=== PATIENT | female | born 1985 | race Two or more races ===

== ENCOUNTER 2023-09-23 11:15 | Emergency (ER) | payer BC, SELFPAY ==
[2023-09-23 11:18] VITALS: BP 140/96
[2023-09-23 11:30] VITALS: BMI 38.4
[2023-09-23 11:41] VITALS: BP 135/80
[2023-09-23 11:53] LABS: % Basophils 0.4 % (0-2); % Eosinophils 0.1 % (0-6); % Immature Granulocytes 0.4 % (0-0.5); % Lymphocytes 14.2 % (20.5-51.1); % Monocytes 4.5 % (1.7-9.3); % Neutrophils 80.4 % (42.2-75.2); Absolute Lymphocytes 1.3 10^3/uL (1.2-3.4); Absolute Monocytes 0.4 10^3/uL (0.1-0.6); Absolute Neutrophils 7.5 10^3/uL (1.4-6.5); Hematocrit 33.9 % (37.0-47.0); Hemoglobin 11.1 g/dL (12.0-16.0); Mean Corp Hgb Conc. 32.7 g/dL (33.0-37.0); Mean Corpuscular Hgb 24.1 pg (27.0-31.0); Mean Corpuscular Volume 73.7 fL (81.0-99.0); Mean Platelet Volume 9.5 fL (7.4-10.4); Nucleated Red Blood Cells % 0 %; Platelet Count 340 10^3/uL (130-400); Red Cell Dist. Width 14.3 % (11.5-14.5); White Blood Cell Count 9.3 10^3/uL (4.8-10.8)
[2023-09-23 12:00] VITALS: BP 132/84
[2023-09-23 12:16] LABS: ALT (SGPT) 14 U/L (0-35); AST (SGOT) 20 U/L (14-36); Albumin 4.4 g/dl (3.5-5.0); Alkaline Phosphatase 53 U/L (38-126); Blood Urea Nitrogen 12 mg/dl (7-17); Calcium 9.3 mg/dl (8.4-10.2); Carbon Dioxide 22 mmol/L (22-30); Chloride 107 mmol/L (98-107); Estimated Creatinine Clearance > 125 ml/min; Glucose 122 mg/dl (70-99); Potassium 4.2 mmol/L (3.5-5.1); Sodium 139 mmol/L (135-145); Total Bilirubin 0.4 mg/dl (0.2-1.3); Total Protein 7.8 g/dl (6.3-8.2); eGFR > 60.00
[2023-09-23] MEDS: NSS 1000 IV (13:19)
[2023-09-23] MEDS: ZOFRAN 4 MG IV (13:19)
--- NOTE | 2023-09-23 13:19 | ED.GENMED ---
History of Present Illness
General
Chief Complaint: Dizziness
Source: patient
Exam Limitations: none
Time Seen by Provider: 09/23/23 12:55
Travel History
Have you had any contact with someone who has COVID-19?: No
Do you have any symptoms of coronavirus? Fever > 100 degrees, chills, cough, shortness of breath, sore throat, loss of taste or smell, muscle aches, or headache?: No
History of Present Illness
History of Present Illness:
38-year-old female presents with the onset of dizziness nausea and vomiting starting last evening getting worse this morning. She states the dizziness was made worse with change in position. She denies headache double vision blurry vision or loss
of vision. She denies chest pain or shortness of breath. She is currently having her menstrual cycle which tends to be getting heavier with each cycle. No known sick contacts. No fever. No new neck pain. No other complaints
Phy Exam
Physical Exam
Physical Exam:
General: Uncomfortable appearing female no acute distress
HEENT normocephalic TMs normal pupils equal round reactive to light subtle horizontal nystagmus on extraocular motion testing
Heart: Regular rate and rhythm
Lungs: Clear no wheeze or rales
Neurologic: Alert and oriented no drift on exam finger-nose [id number] intact. [place] to the right reproduces nausea more so to the right than the left. No obvious nystagmus noted during this test. Alert and oriented x 3 no facial
asymmetry or slurred speech extremities: No cyanosis or edema
Course
Orders/Labs/Results
Orders:
Orders
09/23/23 11:42
Electrocardiogram (*1) Urgent
Reason for Study: Vertigo / Dizzy
EKG- Treatment ONCE
09/23/23 11:43
CMP [Comprehensive Metabolic Panel] Urgent
Complete Blood Count/With Diff Urgent
09/23/23 13:16
0.9% Sodium Chloride 1000 ml [Nss] 1,000 ml IV BOLUS
Ondansetron Injectable [Zofran] 4 mg IV NOW STA
09/23/23 13:21
PT Consult [Pt Eval And Treat] Urgent
Treatment: vestibular eval
Activity Level: Ambulate
09/23/23 14:47
Meclizine [Antivert] 25 mg PO NOW STA
Abnormal Lab Results
09/23/23
11:43
Hgb 11.1 L g/dL
(12.0-16.0)
Hct 33.9 L %
(37.0-47.0)
MCV 73.7 L fL
(81.0-99.0)
MCH 24.1 L pg
(27.0-31.0)
MCHC 32.7 L g/dL
(33.0-37.0)
Absolute Neuts (auto) 7.5 H 10^3/uL
(1.4-6.5)
Neutrophils % 80.4 H %
(42.2-75.2)
Lymphocytes % 14.2 L %
(20.5-51.1)
Creatinine 0.5 L mg/dL
(0.6-1.0)
Glucose 122 H mg/dl
(70-99)
09/23/23 11:43
09/23/23 11:43
Vital Signs
Initial and Last Documented VS:
Initial Vital Signs
Temp Pulse Resp BP Pulse Ox
97.8 F 95 16 140/96 100
09/23/23 11:18 09/23/23 11:18 09/23/23 11:18 09/23/23 11:18 09/23/23 11:18
Last Documented Vital Signs
Temp Pulse Resp BP Pulse Ox
97.8 F 87 16 132/84 100
09/23/23 11:18 09/23/23 12:00 09/23/23 12:00 09/23/23 12:00 09/23/23 12:00
MDM/Problems Addressed
Differential Diagnosis Includes:
Dizziness and nausea and vomiting. Consider vertigo versus viral illness. Patient notes heavy bleeding. Will check for anemia. EKG shows sinus rhythm without ischemic changes. Will hydrate give Zofran for symptoms. Do not suspect CVA. PT
consult ordered
*Critical Care Note
Total Time (30-74mins, 75-104mins- exclusive of procedures): Not Applicable
Update Note
Update Note:
Patient evaluated by vestibular rehab. She also received meclizine afterwards. She states her symptoms are improved. I do suspect perhaps underlying viral illness causing the nausea and diarrhea subsequently contributing towards her vertigo
symptoms. Do not suspect CVA. Zofran and meclizine prescribed. Also wrote prescription for vestibular rehab
ED Attending Note
-
Portions of this chart may have been created with voice recognition software.� Occasional wrong word or��sound alike� substitutions may have occurred due to the inherent limitations of voice recognition software.
Discharge Plan
Departure
Patient Disposition: Home (Routine Discharge)
Date of Disposition: 09/23/23
Time of Disposition: 15:51
Patient with high blood pressure during this ER visit?: No
Discharge Problem:
Vertigo
Instructions: Vertigo (a type of dizziness)
Prescriptions:
New
meclizine 25 mg tablet
25 mg PO TID PRN (Reason: dizziness) Qty: 10 0RF
ondansetron 4 mg tablet,disintegrating
4 mg PO QID PRN (Reason: nausea and vomiting) Qty: 10 0RF
Referrals:
UNKNOWN - PT DOES,NOT KNOW [Family Provider] -
Activity Restrictions/Additional Instructions:
Rest. Drink plenty clear liquids. Use Zofran if needed for nausea and meclizine if needed for dizziness. Return for worsening symptoms. Consider attending outpatient vestibular rehab as well
Interventions
Interventions:
*Risk Screen - Suicide Last Done: 09/23/23 11:31
*General Assessment Last Done: 09/23/23 11:18
*Neglect/Abuse Screening Last Done: 09/23/23 11:31
ED- Fall Risk Assessment Last Done: 09/23/23 12:17
*ED COVID-19 Vaccine History Last Done: 09/23/23 11:18
ED- Neurological Assessment Last Done: 09/23/23 12:17
ED- Cardiac Assessment Last Done: 09/23/23 12:17
Discharge Date and Time
Print Language: GREEK
[2023-09-23 14:27] VITALS: BP 123/90; BP 132/90; BP 135/89
[2023-09-23] MEDS: ANTIVERT 25 MG PO (14:54)
== END 2023-09-23 16:10 | disposition home or self-care (01) ==
LOC: EMR 11:15
PROVIDERS: EMERGENCY PHYSICIAN Emergency Medicine
DX: R42 Dizziness and giddiness (principal); R11.2 Nausea with vomiting, unspecified
CPT/HCPCS: 99283; 96374; 96361; 80053; 85025; 93005